=== PATIENT | female | born 1935 | race Hispanic/Latino ===

== ENCOUNTER → 2019-07-14 | Day surgery (SDC) | payer MEDICARE, BC ==
[2019-07-08 15:19] LABS: BASOPHILS % 0.6 % (0.0-1.0); EOSINOPHILS # (AUTO) 0.2 (0.0-0.4); EOSINOPHILS % 2.8 % (0.0-6.0); HEMATOCRIT 37.1 % (34.2-44.1); HEMOGLOBIN 12.6 g/dL (12.0-16.0); LYMPHOCYTES # (AUTO) 1.6 (1.0-3.2); LYMPHOCYTES % 30.1 % (18.0-39.1); MEAN CORPUSCULAR HEMOGLOBIN 30.4 pg (28-32); MEAN CORPUSCULAR VOLUME 89.4 fL (81-99); MONOCYTES # (AUTO) 0.6 (0.2-0.8); MONOCYTES % 10.2 % (4.4-11.3); NEUTROPHILS % 56.1 % (38.7-80.0); PLATELET COUNT 169 x10e3/uL (140-360); RED BLOOD COUNT 4.15 x10e6/uL (3.6-5.1); RED CELL DISTRIBUTION WIDTH 13.2 % (11.7-14.4)
[~2019-07-14] MED LIST: ALENDRONATE SOD10 MG PO; ALENDRONATE SOD70 MG PO; AMBIEN5 MG PO; AMLODIPINE BESY10 MG PO; ASPIRIN81 MG PO; B-12250 MCG; CENTRUM COMPLE1 EACH PO; CENTRUM SILVER1 EAC1 PO; CITRACAL + D C1 EACH PO; CLARITIN10 M2 PO; CLONIDINE HCL0.1 MG PO; COLACE100 M1 PO; DICYCLOMINE HCL10 MG PEG; DOXAZOSIN MESYLA4 MG PO; ECOTRIN325 MG PO; EXFORGE HCT 101 EAC2 PO; FOLIC ACID1 MG PO; FUROSEMIDE20 MG; FUROSEMIDE20 MG PO; FUROSEMIDE40 MG PO; GABAPENTIN100 MG PEG; KEFLEX500 MG; KLOR-CON 88 MEQ PO; LEVAQUIN500 MG PO; LIDOCAINE HCL 2% LOCAL INJ 5 ML SDV VIAL INJ ONE; LIDODERM700 MG TD; LINZESS PO; LOSARTAN POTAS100 MG PO; MACROBID 100 M100 MG PO; MELOXICAM7.5 MG PO; METHOCARBAMOL750 MG PO; METOPROLOL SUCC25 MG PO; METOPROLOL TART25 MG PO; OMEPRAZOLE40 MG PO; OXYBUTYNIN CHLO15 MG PO; PANTOPRAZOLE SO40 MG PO; PENTOXIFYLLINE400 MG PO; POLYETHYLENE GL17 GM PO; POTASSIUM CHLOR8 ME1 PO; PRILOSEC40 MG PO; PROPOFOL IV EMULSION 10 MG/ML 20 ML VIAL ONE; SIMVASTATIN20 MG PO; STOOL SOFTNER PO; TYLENOL EXTRA500 MG PO; ULTRAM50 MG PO; VITAMIN B-121000 MCG PO; VITAMIN E400 UNI1 PO; calcium PO
--- OUTSIDE RECORDS SUMMARY | 2019-07-14 08:52 | XMS REPORT ---
Author Author [facility] Organization [facility] Address Unknown Phone Unavailable Care Team Providers Care Mmd Unit Teacher Name Role Phone Cuco WHITNEY Unavailable Unavailable Payers Payer Name Policy Type Policy Number Effective Date Expiration Date Problems This patient has no known problems. Allergies, Adverse Reactions, Alerts Allergy Name Allergy Type Status Severity Reaction(s) Onset Date Inactive Date Treating Clinician Comments No Known Allergies DA Active U 2018-09-08 00:00:00 No Known Allergies DA Active U 2018-08-10 00:00:00 No Known Allergies DA Active U 2018-04-21 00:00:00 Medications This patient has no known medications. Results Test Description Test Time Test Comments Text Results Atomic Results Result Comments CHEST SINGLE (PORTABLE) [address] [address] Patient Name: JACKY JOHNSON MR #: [id number] : 1935 Age/Sex: 82/F Req #: [id number] Adm Physician: Ordered by: LOULOU TRACY LIQUID CHLORINE OPERATOR Report #: [id number] Location: ER Room/Bed: Procedure: [id number] DX/CHEST SINGLE (PORTABLE) Exam Date: 10/21/17 Exam Time: 1230 REPORT STATUS: Signed PROCEDURE: CHEST SINGLE (PORTABLE) COMPARISON: CT chest 06/25/2016.. INDICATIONS: ABDOMINAL PAIN FINDINGS: The lungs are well-inflated. No focal airspace consolidation, pleural effusion, or pneumothorax. Cardiomed iastinal contour is remarkable for tortuosity and atherosclerotic calcification of the thoracic aorta. No pulmonary edema. No acute osseous abnormalities. CONCLUSION: No acute cardiopulmonary abnormality. Dictated by: Krishna Torrez M.D. on 10/21/2017 at 12:59 Electronically approved by: Krishna Torrez M.D. on 10/21/2017 at 12:59 Dictated By: KRISHNA TORREZ MD [id number] Transcribed By: EDILBERTO on 10/21/17 1259 COPY TO: LOULOU TRACY NP US GALLBLADDER [place] [address] Patient Name: JACKY JOHNSON MR #: [id number] : 1935 Age/Sex: 82/F Req #: [id number] Adm Physician: Ordered by: LOULOU TRACY LIQUID CHLORINE OPERATOR Report #: [id number] Location: ER Room/Bed: Procedure: [id number] US/US GALLBLADDER Exam Date: Exam Time: REPORT STATUS: Signed PROCEDURE: US GALLBLADDER COMPARISON: 05/01/2014. CT abdomen and pelvis with contrast 06/25/2016. INDICATIONS: ABDOMEN PAIN TECHNIQUE: Rodriguez-scale and color doppler transverse and longitudinal images of the right upper quadrant of the abdomen were obtained. FINDINGS: Liver: 14.4 cm in right mid- clavicular line. Increased parenchymal echogenicity. No masses. Main portal vein: 1.1 cm in caliber. Hepatopedal flow. Gallbladder: Not visualized and presumably removed. Common Bile Duct: 0.7 cm in caliber. Right kidney: 11.5 cm. Normal renal cortical echogenicity. No solid masses or hydronephrosis. 3.5 x 2.2 x 2.5 cm bilobed anechoic simple cyst in the parenchyma. Pancreas: The visualized portions are unremarkable. Inferior vena cava: Patent Aorta: Non-aneurysmal Ascites: None in the right upper quadrant of the abdomen. CONCLUSION: Interval cholecystectomy. Increased hepatic parenchymal echogenicity compatible with steatosis. Right renal cyst. Dictated by: Krishna Torrez M.D. on 10/21/2017 at 14:07 Electronically approved by: Krishna Torrez M.D. on 10/21/2017 at 14:07 Dictated By: KRISHNA TORREZ MD 1406 Transcribed By: EDILBERTO on 10/21/171406 COPY TO: LOULOU TRACY NP
[2019-07-14 13:00] VITALS: BP 162/3
== END | disposition home or self-care (01) ==
LOC: OR 08:40
PROVIDERS: ATTEND Internal Medicine Gastroenterology
DX: K59.00 Constipation, unspecified (principal); Z86.010 Personal history of colon polyps; K29.70 Gastritis, unspecified, without bleeding; K21.0 Gastro-esophageal reflux disease with esophagitis; K44.9 Diaphragmatic hernia without obstruction or gangrene; K57.30 Diverticulosis of large intestine without perforation or abscess without bleeding; K64.8 Other hemorrhoids; Z71.3 Dietary counseling and surveillance; I10 Essential (primary) hypertension; E66.9 Obesity, unspecified; E78.5 Hyperlipidemia, unspecified; N39.0 Urinary tract infection, site not specified; F41.9 Anxiety disorder, unspecified; F32.9 Major depressive disorder, single episode, unspecified; Z01.810 Encounter for preprocedural cardiovascular examination; Z01.812 Encounter for preprocedural laboratory examination; Z79.82 Long term (current) use of aspirin; Z68.33 Body mass index [BMI] 33.0-33.9, adult
CPT/HCPCS: 36415; 43239; 45380; 85025; 88305; 88312; 93005; J2001; J2704

== ENCOUNTER → 2019-08-06 | Outpatient (CLI) | payer MEDICARE, BC ==
[~2019-08-06] MED LIST changes: -LIDOCAINE HCL 2% LOCAL INJ 5 ML SDV VIAL INJ ONE; -PROPOFOL IV EMULSION 10 MG/ML 20 ML VIAL ONE
== END ==
LOC: RAD 09:36
PROVIDERS: ATTEND Internal Medicine
DX: M79.602 Pain in left arm (principal)
CPT/HCPCS: 93971

== ENCOUNTER 2021-02-15 00:09 | Observation (INO) | payer MEDICARE, BC ==
[2021-02-15] VITALS (7 sets, daily range): BP systolic 108–185; BP diastolic 64–93
[~2021-02-15] VITALS: Ht 256.5 cm; Wt 81.6 kg
[2021-02-15 00:39] LABS: BASOPHILS # (AUTO) 0.1 (0.0-0.1); BASOPHILS % 0.7 % (0.0-1.0); EOSINOPHILS # (AUTO) 0.2 (0.0-0.4); EOSINOPHILS % 2.7 % (0.0-6.0); HEMATOCRIT 41.3 % (34.2-44.1); HEMOGLOBIN 13.8 g/dL (12.0-16.0); LYMPHOCYTES # (AUTO) 1.8 (1.0-3.2); LYMPHOCYTES % 26.1 % (18.0-39.1); MEAN CORPUSCULAR HEMOGLOBIN 30.5 pg (28-32); MEAN CORPUSCULAR HGB CONC 33.4 g/dL (31-35); MEAN CORPUSCULAR VOLUME 91.2 fL (81-99); MONOCYTES # (AUTO) 0.8 (0.2-0.8); MONOCYTES % 11.3 % (4.4-11.3); NEUTROPHILS % 59.1 % (38.7-80.0); PLATELET COUNT 148 x10e3/uL (140-360); RED BLOOD COUNT 4.53 x10e6/uL (3.6-5.1); RED CELL DISTRIBUTION WIDTH 12.7 % (11.7-14.4)
[2021-02-15 00:56] LABS: ALANINE AMINOTRANSFERASE 12 IU/L (0-55); ALBUMIN/GLOBULIN RATIO 1.3 (0.8-2.0); ALKALINE PHOSPHATASE 67 IU/L (40-150); BLOOD UREA NITROGEN 16 mg/dL (7-26); BUN/CREATININE RATIO 20 (6-25); CALCIUM 10.1 mg/dL (8.4-10.2); CARBON DIOXIDE 24 mmol/L (22-29); CHLORIDE 103 mmol/L (98-107); CREATINE KINASE 70 IU/L (29-168); CREATININE, SERUM 0.82 mg/dL (0.57-1.11); EST GLOMERULAR FILTRATION RATE > 60 ML/MIN (60-); GLUCOSE 113 mg/dL (74-118); SODIUM 138 mmol/L (136-145)
[2021-02-15] MEDS ORDERED: ASPIRIN 81 MG CHEW TAB PO ONE (03:15)
[2021-02-15] MEDS ORDERED: NEURONTIN100 MG PO (06:21)
[2021-02-15] MEDS ORDERED: OXYBUTYNIN CHLOR5 MG PO (06:21)
[2021-02-15] MEDS ORDERED: ALDACTONE50 MG PO (06:23)
[2021-02-15] MEDS ORDERED: LOSARTAN POTASS25 MG PO (06:28)
[2021-02-15] MEDS: MORPHINE SULFATE INJ 2 MG/ML SYR IV PRN ×3 (06:34→19:58)
[2021-02-15] MEDS ORDERED: POLYETHYLENE GLYCOL 3350 17 GM PACK PO PRN (08:30)
[2021-02-15] MEDS ORDERED: ACETAMINOPHEN 325 MG TAB PO PRN (08:30)
[2021-02-15] MEDS ORDERED: ONDANSETRON HCL INJ 2MG/ML 2ML 2 MG/ML VIAL IV PRN (08:30)
[2021-02-15 08:55] LABS: CREATINE KINASE MB 1.4 ng/mL (0-5.0)
[2021-02-15] MEDS ORDERED: FAMOTIDINE 20 MG TAB PO SCH (09:30)
[2021-02-15] MEDS: DOCUSATE SODIUM 100 MG CAP PO SCH ×2 (11:44→17:41)
[2021-02-15] MEDS: HYDRALAZINE HCL 20 MG/ML VIAL IV PRN ×2 (11:44→19:12)
[2021-02-15] MEDS ORDERED: NITROGLYCERIN 0.4 MG SUBL SL PRN (14:45)
[2021-02-15 17:03] LABS: CREATINE KINASE MB 1.6 ng/mL (0-5.0)
[2021-02-15] MEDS: TEMAZEPAM 15 MG CAP PO PRN (21:00)
[2021-02-16] VITALS (9 sets, daily range): BP systolic 110–183; BP diastolic 58–80
[2021-02-16] MEDS ORDERED: HYDRALAZINE HCL 20 MG/ML VIAL IV PRN (05:45)
[2021-02-16 05:48] LABS: BASOPHILS % 0.3 % (0.0-1.0); EOSINOPHILS % 0.4 % (0.0-6.0); HEMATOCRIT 42.1 % (34.2-44.1); HEMOGLOBIN 14.2 g/dL (12.0-16.0); LYMPHOCYTES % 10.2 % (18.0-39.1); MEAN CORPUSCULAR HEMOGLOBIN 30.5 pg (28-32); MEAN CORPUSCULAR HGB CONC 33.7 g/dL (31-35); MEAN CORPUSCULAR VOLUME 90.3 fL (81-99); NEUTROPHILS # (AUTO) 7.5 (2.1-6.9); NEUTROPHILS % 78.7 % (38.7-80.0); PLATELET COUNT 143 x10e3/uL (140-360); RED BLOOD COUNT 4.66 x10e6/uL (3.6-5.1)
[2021-02-16 06:13] LABS: BLOOD UREA NITROGEN 12 mg/dL (7-26); BUN/CREATININE RATIO 17 (6-25); CALCIUM 9.6 mg/dL (8.4-10.2); CARBON DIOXIDE 23 mmol/L (22-29); CHLORIDE 108 mmol/L (98-107); CREATININE, SERUM 0.71 mg/dL (0.57-1.11); EST GLOMERULAR FILTRATION RATE > 60 ML/MIN (60-); GLUCOSE 136 mg/dL (74-118); PHOSPHORUS 2.8 MG/DL (2.3-4.7); SODIUM 141 mmol/L (136-145)
[2021-02-16 06:34] LABS: THYROID STIMULATING HORMONE 0.936 uIU/mL (0.350-4.940)
[2021-02-16 06:35] LABS: CHOL/HDL RATIO 2.8 (3.0-3.6)
[2021-02-16] MEDS: FAMOTIDINE 20 MG TAB PO SCH ×2 (07:30→16:16)
[2021-02-16] MEDS: LOSARTAN POTASSIUM 100 MG TAB PO SCH (08:19)
[2021-02-16] MEDS: FOLIC ACID 1 MG TAB PO SCH (08:19)
[2021-02-16] MEDS: OXYBUTYNIN CHLORIDE 5 MG TAB PO SCH (08:19)
[2021-02-16] MEDS: SPIRONOLACTONE 25 MG TAB PO SCH (08:19)
[2021-02-16] MEDS: DOCUSATE SODIUM 100 MG CAP PO SCH ×2 (08:19→16:16)
[2021-02-16] MEDS: METOPROLOL TARTRATE 25 MG TAB PO SCH ×2 (08:20→16:16)
[2021-02-16] MEDS: PENTOXIFYLLINE 400 MG TAB CR PO SCH ×2 (08:20→16:16)
[2021-02-16] MEDS ORDERED: REGADENOSON 0.4 MG/5 ML SYR IV ONE (10:25)
[2021-02-16] MEDS ORDERED: ENOXAPARIN SOD INJ 40 MG/0.4 ML SYR SC SCH (17:00)
[2021-02-16] MEDS: CARVEDILOL 12.5 MG TAB PO SCH (17:44)
[2021-02-16] MEDS ORDERED: ATORVASTATIN 20 MG TAB PO SCH (21:00)
[2021-02-16] MEDS: TEMAZEPAM 15 MG CAP PO PRN (22:00)
[2021-02-17] VITALS: BP 142/71
[2021-02-17 04:00] VITALS: BP 145/65
[2021-02-17 07:30] VITALS: BP 120/64
[2021-02-17] MEDS: SPIRONOLACTONE 25 MG TAB PO SCH (08:28)
[2021-02-17] MEDS: FAMOTIDINE 20 MG TAB PO SCH (08:28)
[2021-02-17] MEDS: DOCUSATE SODIUM 100 MG CAP PO SCH (08:28)
[2021-02-17] MEDS: CARVEDILOL 12.5 MG TAB PO SCH (08:29)
[2021-02-17] MEDS: FOLIC ACID 1 MG TAB PO SCH (08:30)
[2021-02-17] MEDS: OXYBUTYNIN CHLORIDE 5 MG TAB PO SCH (08:30)
[2021-02-17] MEDS: LOSARTAN POTASSIUM 100 MG TAB PO SCH (08:30)
[2021-02-17] MEDS: PENTOXIFYLLINE 400 MG TAB CR PO SCH (08:37)
[2021-02-17 08:46] VITALS: BP 120/64
[2021-02-17 08:48] VITALS: BP 120/64
[2021-02-17 11:49] VITALS: BP 90/61
[2021-02-17] MEDS ORDERED: COREG12.5 MG PO (14:28)
== END 2021-02-17 15:00 | disposition home or self-care (01) ==
LOC: ER 01:14 → ERHOLD 03:10 → MED/SURG 04:00
PROVIDERS: ADMIT Internal Medicine; ATTEND Internal Medicine
DX: I25.10 Atherosclerotic heart disease of native coronary artery without angina pectoris (principal); I10 Essential (primary) hypertension; M81.0 Age-related osteoporosis without current pathological fracture; I51.7 Cardiomegaly; I73.9 Peripheral vascular disease, unspecified; Z20.822 Contact with and (suspected) exposure to COVID-19; Z74.09 Other reduced mobility; R13.10 Dysphagia, unspecified
CPT/HCPCS: 36415 ×2; 70450; 71045; 78452; 80048; 80053; 80061; 82550; 82553; 83036; 83735; 83880; 84100; 84443; 84484; 85025 ×2; 85379; 86140; 93005; 93017; 93306; 99284; A9502; G0378 ×3; J0360; J1650; J2270; J2785; U0002

== ENCOUNTER 2022-05-03 21:09 | Inpatient (IN) | payer MEDICARE, BC ==
[~2022-05-03] VITALS: Ht 144.8 cm; Wt 69.9 kg
[~2022-05-03 21:09] MED LIST changes: +ALDACTONE50 MG PO; +COREG12.5 MG PO; +LOSARTAN POTASS25 MG PO; +NEURONTIN100 MG PO; +OXYBUTYNIN CHLOR5 MG PO
[2022-05-03] MEDS ORDERED: ACETAMINOPHEN 325 MG/10 ML UDC PO STA ×2 (21:32→22:00)
[2022-05-03 22:03] LABS: BASOPHILS % 0.4 % (0.0-1.0); EOSINOPHILS # (AUTO) 0.1 (0.0-0.4); EOSINOPHILS % 0.6 % (0.0-6.0); HEMATOCRIT 40.2 % (34.2-44.1); HEMOGLOBIN 13.3 g/dL (12.0-16.0); LYMPHOCYTES # (AUTO) 0.5 (1.0-3.2); LYMPHOCYTES % 5.7 % (18.0-39.1); MEAN CORPUSCULAR HEMOGLOBIN 30.9 pg (28-32); MEAN CORPUSCULAR HGB CONC 33.1 g/dL (31-35); MEAN CORPUSCULAR VOLUME 93.5 fL (81-99); MONOCYTES # (AUTO) 0.2 (0.2-0.8); MONOCYTES % 2.8 % (4.4-11.3); NEUTROPHILS # (AUTO) 7.3 (2.1-6.9); NEUTROPHILS % 90.3 % (38.7-80.0); PLATELET COUNT 168 x10e3/uL (140-360); RED CELL DISTRIBUTION WIDTH 13.1 % (11.7-14.4)
[2022-05-03 22:15] LABS: BACTERIA,URINE MANY /HPF; CLARITY,URINE HAZY (CLEAR); COLOR,URINE YELLOW (YELLOW); KETONES,URINE NEGATIVE (NEGATIVE); LEUKOCYTE ESTERASE ,URINE SMALL (NEGATIVE); NITRITE,URINE POSITIVE (NEGATIVE); PROTEIN,URINE DIPSTICK NEGATIVE (NEGATIVE); RBC,URINE 0-5 /HPF (0-5); URINE UROBILINOGEN 1 mg/dL (0.2 - 1)
[2022-05-03 22:21] LABS: ALBUMIN 3.5 g/dL (3.5-5.0); ANION GAP 14.9 mmol/L (8-16); CALCIUM 9.8 mg/dL (8.4-10.2); CREATININE, SERUM 0.94 mg/dL (0.57-1.11); POTASSIUM 3.9 mmol/L (3.5-5.1)
[2022-05-03] MEDS ORDERED: SODIUM CHLORIDE 0.9% 1000ML 1,000 ML IV STA (22:21)
[2022-05-03 22:28] LABS: CREATINE KINASE 44 IU/L (29-168)
[2022-05-03] MEDS ORDERED: SODIUM CHLORIDE 0.9% 1000ML 1,000 ML ONE (22:36)
[2022-05-04] MEDS ORDERED: SODIUM CHLORIDE 0.9% 1000ML 1,000 ML IV ONE (00:15)
[2022-05-04] MEDS ORDERED: SODIUM CHLORIDE 0.9% 1000ML 1,000 ML IV STA (01:27)
[2022-05-04] MEDS: SODIUM CHLORIDE 0.9% 1000ML 1,000 ML IV SCH ×3 (04:55→17:30)
[2022-05-04] MEDS ORDERED: FUROSEMIDE 40 MG TAB PO SCH (09:15)
[2022-05-04 09:46] LABS: CREATINE KINASE 28 IU/L (29-168)
[2022-05-04 11:42] VITALS: BP 135/68
[2022-05-04 12:29] VITALS: BP 135/68
[2022-05-04 13:17] VITALS: BP 135/68
[2022-05-04 15:28] VITALS: BP 134/54
[2022-05-04] MEDS: PENTOXIFYLLINE 400 MG TAB CR PO SCH (17:00)
[2022-05-04] MEDS: CARVEDILOL 12.5 MG TAB PO SCH (17:00)
[2022-05-04] MEDS ORDERED: ENOXAPARIN SOD INJ 40 MG/0.4 ML SYR SC SCH (17:00)
[2022-05-04 19:45] LABS: CREATINE KINASE 26 IU/L (29-168)
[2022-05-04 20:00] VITALS: BP 133/52
[2022-05-04] MEDS: GABAPENTIN 100 MG CAP PO SCH (20:58)
[2022-05-04] MEDS: SIMVASTATIN 20 MG TAB PO SCH (20:58)
[2022-05-05] VITALS (7 sets, daily range): BP systolic 107–154; BP diastolic 49–66
[2022-05-05] MEDS: SODIUM CHLORIDE 0.9% 1000ML 1,000 ML IV SCH ×3 (01:06→17:04)
[2022-05-05 07:09] LABS: BASOPHILS % 0.4 % (0.0-1.0); EOSINOPHILS # (AUTO) 0.1 (0.0-0.4); EOSINOPHILS % 1.2 % (0.0-6.0); HEMATOCRIT 35.4 % (34.2-44.1); HEMOGLOBIN 11.4 g/dL (12.0-16.0); LYMPHOCYTES # (AUTO) 1.2 (1.0-3.2); LYMPHOCYTES % 17.5 % (18.0-39.1); MEAN CORPUSCULAR HEMOGLOBIN 30.5 pg (28-32); MEAN CORPUSCULAR HGB CONC 32.2 g/dL (31-35); MEAN CORPUSCULAR VOLUME 94.7 fL (81-99); MONOCYTES # (AUTO) 0.7 (0.2-0.8); MONOCYTES % 9.4 % (4.4-11.3); NEUTROPHILS # (AUTO) 4.9 (2.1-6.9); NEUTROPHILS % 70.9 % (38.7-80.0); PLATELET COUNT 137 x10e3/uL (140-360); RED BLOOD COUNT 3.74 x10e6/uL (3.6-5.1); RED CELL DISTRIBUTION WIDTH 12.9 % (11.7-14.4)
[2022-05-05 07:34] LABS: ALBUMIN 2.6 g/dL (3.5-5.0); ALBUMIN/GLOBULIN RATIO 0.8 (0.8-2.0); ANION GAP 13.5 mmol/L (8-16); CALCIUM 8.6 mg/dL (8.4-10.2); CREATININE, SERUM 0.63 mg/dL (0.57-1.11); POTASSIUM 3.5 mmol/L (3.5-5.1)
[2022-05-05] MEDS: CARVEDILOL 12.5 MG TAB PO SCH ×2 (08:00→17:00)
[2022-05-05] MEDS: FOLIC ACID 1 MG TAB PO SCH (09:00)
[2022-05-05] MEDS: PENTOXIFYLLINE 400 MG TAB CR PO SCH ×2 (09:00→17:00)
[2022-05-05] MEDS ORDERED: PANTOPRAZOLE SOD 40 MG TABEC PO SCH (09:00)
[2022-05-05] MEDS: LOSARTAN POTASSIUM 25 MG TAB PO SCH (09:00)
[2022-05-05] MEDS: SPIRONOLACTONE 25 MG TAB PO SCH (09:00)
[2022-05-05] MEDS: OXYBUTYNIN CHLORIDE 5 MG TAB PO SCH (09:00)
[2022-05-05 09:01] LABS: CREATINE KINASE MB 0.6 ng/mL (0-5.0)
[2022-05-05] MEDS ORDERED: ELIQUIS5 MG PO (09:50)
[2022-05-05] MEDS: PANTOPRAZOLE SOD 40 MG TABEC PO SCH (20:43)
[2022-05-05] MEDS: APIXABAN 5 MG TABLET PO SCH (20:43)
[2022-05-05] MEDS: GABAPENTIN 100 MG CAP PO SCH (20:43)
[2022-05-05] MEDS: SIMVASTATIN 20 MG TAB PO SCH (20:43)
[2022-05-06] VITALS: BP 153/59
[2022-05-06] MEDS: SODIUM CHLORIDE 0.9% 1000ML 1,000 ML IV SCH (02:20)
[2022-05-06 04:00] VITALS: BP 140/61
[2022-05-06 08:10] VITALS: BP 127/60
[2022-05-06 08:14] VITALS: BP 127/60
[2022-05-06] MEDS: OXYBUTYNIN CHLORIDE 5 MG TAB PO SCH (08:21)
[2022-05-06] MEDS: FOLIC ACID 1 MG TAB PO SCH (08:21)
[2022-05-06] MEDS: LOSARTAN POTASSIUM 25 MG TAB PO SCH (08:21)
[2022-05-06] MEDS: PENTOXIFYLLINE 400 MG TAB CR PO SCH ×2 (08:21→17:12)
[2022-05-06] MEDS: APIXABAN 5 MG TABLET PO SCH (08:21)
[2022-05-06] MEDS: SPIRONOLACTONE 25 MG TAB PO SCH (08:21)
[2022-05-06] MEDS: PANTOPRAZOLE SOD 40 MG TABEC PO SCH (08:21)
[2022-05-06] MEDS: CARVEDILOL 12.5 MG TAB PO SCH ×2 (08:22→17:12)
[2022-05-06] MEDS ORDERED: MIRALAX17 GM PO (08:29)
[2022-05-06] MEDS ORDERED: AMITIZA8 MCG PO (08:29)
[2022-05-06] MEDS ORDERED: POLYETHYLENE GLYCOL 3350 17 GM PACK PO PRN (09:15)
[2022-05-06 11:24] VITALS: BP 95/44
[2022-05-06] MEDS ORDERED: PIPERACILLIN/TAZOBACTAM 3.375 GM VIAL ONE (11:52)
[2022-05-06] MEDS ORDERED: TYLENOL325 MG PO (13:55)
[2022-05-06] MEDS ORDERED: melatonin PO (13:55)
[2022-05-06 15:53] VITALS: BP 133/61
[2022-05-06] MEDS ORDERED: LUBIPROSTONE 8 MCG PO SCH (17:00)
[2022-05-07] MEDS ORDERED: BACTRIM DS TAB1 EACH PO (08:00)
== END 2022-05-06 19:03 | disposition home or self-care (01) | DRG 872 ==
LOC: ER 21:24 → ERHOLD 05-04 01:30 → MED/SURG2 05-04 11:33
PROVIDERS: ADMIT Internal Medicine; ATTEND Internal Medicine
DX: A41.51 Sepsis due to Escherichia coli [E. coli] (principal); Z16.12 Extended spectrum beta lactamase (ESBL) resistance; N12 Tubulo-interstitial nephritis, not specified as acute or chronic; Z20.822 Contact with and (suspected) exposure to COVID-19; I10 Essential (primary) hypertension
CPT/HCPCS: 36415; 71045; 76770; 80053; 81001; 82550; 82553; 83605; 84484; 85025; 87040; 87071; 87086; 87186; 87205; 99284; J1650; J2543; J7030

== ENCOUNTER 2023-05-18 20:18 | Emergency (ER) | payer MEDICARE, BC ==
[~2023-05-18] VITALS: Ht 144.8 cm; Wt 72.6 kg
[~2023-05-18 20:18] MED LIST changes: +AMITIZA8 MCG PO; +BACTRIM DS TAB1 EACH PO; +ELIQUIS5 MG PO; +MIRALAX17 GM PO; +TYLENOL325 MG PO; +melatonin PO
[2023-05-18] MEDS ORDERED: ONDANSETRON HCL INJ 2MG/ML 2ML 2 MG/ML VIAL IV STA (20:43)
[2023-05-18] MEDS ORDERED: FAMOTIDINE 20 MG/2 ML VIAL IV STA (20:43)
[2023-05-18] MEDS ORDERED: LIDOCAINE VISC 2% SOLN 15 ML UDC PO ONE (20:45)
[2023-05-18] MEDS ORDERED: MAGNESIUM/ALUMINUM/SIMETHICONE 30 ML UDC PO ONE (20:45)
[2023-05-18] MEDS ORDERED: BELLADONNA ALK/PHENOBARBITAL 5 ML UDC PO ONE (20:45)
[2023-05-18] MEDS ORDERED: ASPIRIN 81 MG CHEW TAB PO ONE (21:00)
[2023-05-18] MEDS ORDERED: ASPIRIN 325 MG TAB PO ONE (21:00)
[2023-05-18] MEDS ORDERED: LIDOCAINE VISC 2% SOLN 15 ML UDC ONE (21:01)
[2023-05-18] MEDS ORDERED: BELLADONNA ALK/PHENOBARBITAL 5 ML UDC ONE (21:02)
[2023-05-18] MEDS ORDERED: ONDANSETRON HCL INJ 2MG/ML 2ML 2 MG/ML VIAL ONE (21:02)
[2023-05-18] MEDS ORDERED: ASPIRIN 325 MG TAB ONE (21:02)
[2023-05-18] MEDS ORDERED: MAGNESIUM/ALUMINUM/SIMETHICONE 30 ML UDC ONE (21:02)
[2023-05-18] MEDS ORDERED: FAMOTIDINE 20 MG/2 ML VIAL IV ONE (21:03)
[2023-05-18 22:01] LABS: CREATINE KINASE 77 IU/L (29-168)
[2023-05-18] MEDS ORDERED: CLONIDINE HCL 0.1 MG TAB ONE (22:14)
[2023-05-18] MEDS ORDERED: CLONIDINE HCL 0.1 MG TAB PO ONE (22:15)
[2023-05-18 22:40] VITALS: BP 136/63; PULSE 69; RESP 18; TEMP 98.4; O2SAT 93
== END 2023-05-18 22:40 | disposition home or self-care (01) ==
LOC: FSED 20:35
DX: R10.13 Epigastric pain (principal); R07.2 Precordial pain; R11.0 Nausea; R00.1 Bradycardia, unspecified; I11.0 Hypertensive heart disease with heart failure; I50.9 Heart failure, unspecified; K21.9 Gastro-esophageal reflux disease without esophagitis; E78.5 Hyperlipidemia, unspecified; Z86.718 Personal history of other venous thrombosis and embolism; Z79.01 Long term (current) use of anticoagulants; Z79.899 Other long term (current) drug therapy
CPT/HCPCS: 36415; 71046; 74176; 80048; 80076; 81003; 82550; 84484; 85025; 93005; 96374; 96375; 99284; J2405

== ENCOUNTER 2024-10-28 09:10 | Inpatient (IN) | payer MEDICARE, BC ==
[~2024-10-28] VITALS: Ht 124.5 cm; Wt 69.9 kg
[~2024-10-28 09:10] MED LIST changes: +ACETAMINOPHEN650 M2; +ASPIRIN EC81 MG PO; +CARAFATE1 GM PO; +COREG6.25 MG PO; +CRANBERRY200 MG PO; +ESTRACE42.5 GM VG; +FIBER500 MG PEG; +LORATADINE10 MG PO; +MYRBETRIQ50 MG; +SALONPAS 3.1%-1 EACH
[2024-10-28 09:23] VITALS: TEMP 97.6
[2024-10-28] MEDS: ACETAMINOPHEN 325 MG TAB PO ONE (11:45)
[2024-10-28] MEDS: NITROGLYCERIN 0.4 MG SUBL SL ONE ×2 (11:46→15:14)
[2024-10-28] MEDS ORDERED: IOPAMIDOL 370 MG/ML 100 ML INFUS..BTL INJ ONE (12:16)
[2024-10-28] MEDS: HYDRALAZINE HCL 20 MG/ML VIAL IV STA (15:15)
[2024-10-28] MEDS: ASPIRIN 325 MG TAB PO ONE (15:43)
[2024-10-28] MEDS: Morphine 4mg INJECTION 4 MG/ML INJ IV ONE (15:43)
[2024-10-28] MEDS: ONDANSETRON HCL INJ 2MG/ML 2ML 2 MG/ML VIAL IV PRN (15:44)
[2024-10-28 16:52] VITALS: PULSE 69; RESP 14
[2024-10-28 17:15] VITALS: BP 130/60; O2SAT 98
[2024-10-28] MEDS: SIMVASTATIN 20 MG TAB PO SCH (20:32)
[2024-10-28 21:00] VITALS: BP 129/56; PULSE 64; RESP 18; TEMP 98; O2SAT 98
[2024-10-29] VITALS (7 sets, daily range): BP systolic 132–192; BP diastolic 63–97; PULSE 58–74; RESP 18–19; TEMP 97.3–98.4; O2SAT 94–99
[2024-10-29] MEDS: Morphine 4mg INJECTION 4 MG/ML INJ IV PRN (05:56)
[2024-10-29 06:05] LABS: CHOL/HDL RATIO 2.5 (3.0-3.6)
[2024-10-29 06:26] LABS: THYROID STIMULATING HORMONE 0.933 uIU/mL (0.350-4.940)
[2024-10-29] MEDS: FUROSEMIDE 40 MG TAB PO SCH (08:16)
[2024-10-29] MEDS: ASPIRIN 81 MG ENTERIC COATED PO SCH (08:16)
[2024-10-29] MEDS: CARVEDILOL 3.125 MG TAB PO SCH (08:17)
[2024-10-29] MEDS: PENTOXIFYLLINE 400 MG TAB CR PO SCH (16:54)
[2024-10-30] VITALS (8 sets, daily range): BP systolic 126–157; BP diastolic 53–72; PULSE 56–64; RESP 16–21; TEMP 97.6–98.6; O2SAT 95–100
[2024-10-30 05:06] LABS: AMPHETAMINES SCREEN,URINE NEGATIVE (NEGATIVE); BENZODIAZEPINES SCREEN,URINE NEGATIVE (NEGATIVE); CANNABINOIDS SCREEN,URINE NEGATIVE (NEGATIVE); COCAINE SCREEN,URINE NEGATIVE (NEGATIVE); METHADONE SCREEN, URINE NEGATIVE (NEGATIVE); OPIATES SCREEN,URINE POSITIVE (NEGATIVE); PHENCYCLIDINE SCREEN,URINE NEGATIVE (NEGATIVE)
[2024-10-30] MEDS: PANTOPRAZOLE SOD 40 MG TABEC PO SCH (08:59)
[2024-10-31] VITALS (8 sets, daily range): BP systolic 120–166; BP diastolic 55–76; PULSE 57–78; RESP 17–20; TEMP 97.1–98.1; O2SAT 95–98
[2024-10-31 08:18] LABS: BASOPHILS % 0.1 % (0.0-1.0); EOSINOPHILS # (AUTO) 0.1 (0.0-0.4); EOSINOPHILS % 1.3 % (0.0-6.0); HEMATOCRIT 45.7 % (34.2-44.1); HEMOGLOBIN 14.7 g/dL (12.0-16.0); LYMPHOCYTES # (AUTO) 1.4 (1.0-3.2); LYMPHOCYTES % 16.6 % (18.0-39.1); MEAN CORPUSCULAR HEMOGLOBIN 31.6 pg (28-32); MEAN CORPUSCULAR HGB CONC 32.2 g/dL (31-35); MEAN CORPUSCULAR VOLUME 98.3 fL (81-99); MONOCYTES % 11.4 % (4.4-11.3); NEUTROPHILS # (AUTO) 6.1 (2.1-6.9); NEUTROPHILS % 70.4 % (38.7-80.0); PLATELET COUNT 123 x10e3/uL (140-360); RED BLOOD COUNT 4.65 x10e6/uL (3.6-5.1); RED CELL DISTRIBUTION WIDTH 13.5 % (11.7-14.4); WHITE BLOOD COUNT 8.61 x10e3/uL (4.8-10.8)
[2024-10-31 08:50] LABS: ALBUMIN 3.7 g/dL (3.5-5.0); ALBUMIN/GLOBULIN RATIO 1.2 (0.8-2.0); ANION GAP 13.7 mmol/L (8-16); BILIRUBIN,TOTAL 0.7 mg/dL (0.2-1.2); CALCIUM 10.4 mg/dL (8.4-10.2); CREATININE, SERUM 0.75 mg/dL (0.57-1.11); MAGNESIUM 2.2 MG/DL (1.3-2.1); POTASSIUM 3.7 mmol/L (3.5-5.1); TOTAL PROTEIN 6.8 g/dL (6.5-8.1)
[2024-10-31] MEDS: POTASSIUM CHLORIDE 10MEQ EA PO SCH (12:00)
[2024-10-31] MEDS: SODIUM CHLORIDE 0.9% 1000ML 1,000 ML IV ONE (23:26)
[2024-11-01] VITALS (19 sets, daily range): BP systolic 120–173; BP diastolic 48–79; PULSE 54–65; RESP 11–20; TEMP 97.7–98.2; O2SAT 95–100
[2024-11-01 05:57] LABS: BASOPHILS % 0.1 % (0.0-1.0); EOSINOPHILS # (AUTO) 0.1 (0.0-0.4); HEMOGLOBIN 13.5 g/dL (12.0-16.0); LYMPHOCYTES # (AUTO) 1.5 (1.0-3.2); MEAN CORPUSCULAR HEMOGLOBIN 31.1 pg (28-32); MEAN CORPUSCULAR HGB CONC 32.1 g/dL (31-35); MEAN CORPUSCULAR VOLUME 96.8 fL (81-99); MONOCYTES # (AUTO) 0.6 (0.2-0.8); MONOCYTES % 8.5 % (4.4-11.3); NEUTROPHILS # (AUTO) 4.7 (2.1-6.9); PLATELET COUNT 140 x10e3/uL (140-360); RED BLOOD COUNT 4.34 x10e6/uL (3.6-5.1); RED CELL DISTRIBUTION WIDTH 13.4 % (11.7-14.4); WHITE BLOOD COUNT 6.91 x10e3/uL (4.8-10.8)
[2024-11-01 06:17] LABS: ALBUMIN 3.4 g/dL (3.5-5.0); ALBUMIN/GLOBULIN RATIO 1.2 (0.8-2.0); ANION GAP 13.9 mmol/L (8-16); BILIRUBIN,TOTAL 0.7 mg/dL (0.2-1.2); CALCIUM 9.4 mg/dL (8.4-10.2); CREATININE, SERUM 0.73 mg/dL (0.57-1.11); POTASSIUM 3.9 mmol/L (3.5-5.1); TOTAL PROTEIN 6.3 g/dL (6.5-8.1)
[2024-11-01] MEDS: HEPARIN SOD (PORCINE) 1000 UNIT/ML 30ML ONE (08:31)
[2024-11-01] MEDS: SODIUM CHLORIDE 0.9% 1000ML 1,000 ML ONE (08:31)
[2024-11-01] MEDS: HEPARIN SOD/SOD CHLORIDE 2,000 ML ONE (08:31)
[2024-11-01] MEDS: NITROGLYCERIN/D5W 200 MCG/ML 250 ML ONE (08:32)
[2024-11-01] MEDS: IOPAMIDOL 370 MG/ML 100 ML INFUS..BTL INJ ONE (08:34)
[2024-11-01] MEDS: LIDOCAINE HCL 2% LOCAL 20 ML VIAL ONE (08:34)
[2024-11-01] MEDS: FENTANYL CITRATE/PF 100MCG/2 ML INJ ONE (08:35)
[2024-11-01] MEDS: MIDAZOLAM HCL 2 MG/2 ML VIAL ONE (08:35)
[2024-11-01] MEDS: NIFEDIPINE CR 30 MG TAB PO SCH (09:00)
[2024-11-01 13:54] LABS: ANION GAP 13.9 mmol/L (8-16); CALCIUM 9.7 mg/dL (8.4-10.2); CREATININE, SERUM 0.75 mg/dL (0.57-1.11); POTASSIUM 3.9 mmol/L (3.5-5.1)
[2024-11-01] MEDS: ACETAMINOPHEN 325 MG TAB PO PRN (18:46)
[2024-11-02] VITALS: BP 140/59; PULSE 69; RESP 18; TEMP 97.7; O2SAT 97
[2024-11-02 01:18] VITALS: BP 139/48; PULSE 63; RESP 17; TEMP 97.9; O2SAT 98
[2024-11-02 04:00] VITALS: BP 148/60; PULSE 55; RESP 17; TEMP 98; O2SAT 100
[2024-11-02 08:00] VITALS: BP 126/61; PULSE 68; RESP 19; TEMP 97.3; O2SAT 99
[2024-11-02 08:04] VITALS: BP 148/60; PULSE 55; RESP 17; TEMP 98; O2SAT 100
[2024-11-02 09:58] VITALS: BP 126/61; PULSE 63
== END 2024-11-02 12:05 | disposition home or self-care (01) | DRG 287 ==
LOC: FSED 09:26 → ERHOLD 15:31 → MED/SURG2 17:11 → OBSVTOIN 10-29 10:02
PROVIDERS: ADMIT Internal Medicine; ATTEND Internal Medicine
PROC: 4A023N7 Measurement of Cardiac Sampling and Pressure, Left Heart, Percutaneous Approach (ICD-10-PCS; principal; 2024-11-01)
PROC: B2111ZZ Fluoroscopy of Multiple Coronary Arteries using Low Osmolar Contrast (ICD-10-PCS; 2024-11-01)
DX: I25.110 Atherosclerotic heart disease of native coronary artery with unstable angina pectoris (principal); I16.1 Hypertensive emergency; I16.0 Hypertensive urgency; I11.9 Hypertensive heart disease without heart failure; R09.02 Hypoxemia; F41.0 Panic disorder [episodic paroxysmal anxiety]; R00.1 Bradycardia, unspecified; G40.909 Epilepsy, unspecified, not intractable, without status epilepticus; E78.00 Pure hypercholesterolemia, unspecified; K21.9 Gastro-esophageal reflux disease without esophagitis; M50.10 Cervical disc disorder with radiculopathy, unspecified cervical region; Z96.643 Presence of artificial hip joint, bilateral; Z79.899 Other long term (current) drug therapy; Z79.82 Long term (current) use of aspirin
CPT/HCPCS: 36415; 71275; 74174; 80048; 80053; 80061; 80307; 82553; 83036; 83735; 84443; 84484; 85025; 93005; 93306; 99252; 99284; G0378; J0360; J1644; J2003; J2250; J2270; J2405; J7030; Q9967